=== PATIENT | female | born 1935 | race Caucasian/White ===

== ENCOUNTER 2020-04-07 19:46 | Inpatient (IN) | payer MEDICARE, BC ==
[~2020-04-07] VITALS: Ht 147.3 cm
--- NOTE | ~2020-04-07 | CON ---
[address] [address] CONSULTATION Name: STEPHANIE PAGE Room: [place] [address] ADM IN .R.#: [id number] Admission: 04/07/20 Attend Phys: Aviva Li MD Discharge: Date of : 33 Report #: [id number] THIS REPORT FOR: //name// cc: Prabhakar Gonzalez MD, Tuongvan T. MD ~ THIS REPORT FOR: //name// DATE OF SERVICE: 04/08/2020 REASON FOR CONSULT: Dysphagia and inability to swallow. HISTORY OF PRESENT ILLNESS: This is an 84-year-old female who presented to the Emergency Room with inability to swallow. The patient feels that there is a lump in her throat. She reports that she was not eating anything when she got the sensation. She denies any previous history of gastroesophageal reflux disease, dysphagia or odynophagia. The patient is diabetic and her blood sugar has been unstable, ranging from 40-300. PAST MEDICAL HISTORY: Significant for history of diabetes mellitus, constipation, hypothyroidism, dyslipidemia, hysterectomy, thrombocytopenia, hypertension, ROM to both arms. ALLERGIES: SIGNIFICANT TO PENICILLIN AND CODEINE. MEDICATIONS: Please refer to MAR. SOCIAL HISTORY: The patient lives at home, is and denies tobacco or alcohol use. FAMILY HISTORY: Noncontributory. PHYSICAL EXAMINATION: VITAL SIGNS: Reveals blood pressure of 155/60, respirations 16, pulse 87, temperature 98.8. LUNGS: Clear. CARDIOVASCULAR: Regular. ABDOMEN: Soft, nontender, nondistended. Bowel sounds are positive. NEUROLOGIC: The patient is alert and oriented x 3. LABORATORY DATA: Labs reveal sodium of 138, potassium 4.2, BUN is 22, creatinine 0.8, AST 16, lipase 78, alkaline phosphatase 64, ALT is 15. WBC is 14.8 with hemoglobin of 9.1 and platelets of 567. ASSESSMENT AND PLAN: The patient with possible food bolus as she is not able to swallow saliva or anything to drink or eat. [place] [address] CONSULTATION Name: STEPHANIE PAGE Room: [address] IN [facility]#: [id number] Admission: 04/07/20 Attend Phys: Aviva Li MD Discharge: Date of : 33 Report #: [id number] endoscopy and make further recommendation based on finding. The patient and are agreeable with plan. By: [id number] Desai MD /nt
[2020-04-07 19:50] VITALS: BP 174/79
[2020-04-07] MEDS ORDERED: AMITRIPTYLINE H50 M2 (20:15)
[2020-04-07] MEDS ORDERED: ADULT ASPIRIN R81 MG (20:16)
[2020-04-07] MEDS ORDERED: COLACE100 MG (20:16)
[2020-04-07] MEDS ORDERED: AZELASTINE205.5 MCG/ (20:16)
[2020-04-07] MEDS ORDERED: DULCOLAX10 MG (20:17)
[2020-04-07] MEDS ORDERED: FLEET ENEMA133 ML (20:17)
[2020-04-07] MEDS ORDERED: DULOXETINE HCL60 MG (20:18)
[2020-04-07] MEDS ORDERED: HUMALOG100 UNIT/1 (20:18)
[2020-04-07] MEDS ORDERED: LANTUS SUBQ (20:19)
[2020-04-07] MEDS ORDERED: LIDODERM1 EACH (20:20)
[2020-04-07] MEDS ORDERED: METFORMIN HCL500 M3 PO (20:20)
[2020-04-07] MEDS ORDERED: LEVO-T50 MCG (20:20)
[2020-04-07] MEDS ORDERED: ALOCRIL5 ML (20:21)
[2020-04-07] MEDS ORDERED: MIRALAX119 GM (20:21)
[2020-04-07] MEDS ORDERED: MILK OF MA400 MG/5 M (20:21)
[2020-04-07] MEDS ORDERED: HYDROCODON-ACE1 EAC7 (20:21)
[2020-04-07] MEDS ORDERED: OMEPRAZOLE 20 M20 M1 (20:22)
[2020-04-07] MEDS ORDERED: PLOGLITAZONE PO (20:23)
[2020-04-07] MEDS ORDERED: PRAVASTATIN SOD80 MG (20:24)
[2020-04-07] MEDS ORDERED: TIZANIDINE HCL4 M1 (20:24)
[2020-04-07] MEDS ORDERED: TYLENOL325 M1 (20:24)
[2020-04-07 20:36] LABS: HEMATOCRIT 29.2 % (37.0-47.0); HEMOGLOBIN 9.1 gm/dL (12.0-15.0); MCH 21.7 pg (26.0-34.0); MCHC 31.3 g/dL (28.0-37.0); MCV 69.4 fL (80.0-100.0); MPV 7.4 fl. (7.2-11.1); NUCLEATED RBCS 0 /100WBC; PLATELET COUNT* 567 thou/uL (150-400); RBC 4.21 mil/uL (4.20-5.00); RDW-CV 17.1 % (10.5-14.5); WBC 14.8 thou/uL (4.0-11.0)
[2020-04-07 20:42] LABS: ANION GAP 4 mmol/L (7-16); BUN 22 mg/dL (7-18); CALCIUM 8.5 mg/dL (8.5-10.1); CHLORIDE 102 mmol/L (98-107); CO2 32 mmol/L (21-32); CREATININE 0.8 mg/dL (0.6-1.3); GLUCOSE 68 mg/dL (70-99); POTASSIUM 4.2 mmol/L (3.5-5.1); SODIUM 138 mmol/L (136-145)
[2020-04-07 20:47] LABS: ALBUMIN 3.5 g/dL (3.4-5.0); ALKALINE PHOSPHATASE 64 U/L (46-116); CHOLESTEROL 155 mg/dL (<200); HDL CHOLESTEROL 50 mg/dL (>40); LDL CHOLESTEROL 82 mg/dL (<100); SERUM ASSESSMENT Clear; SGOT 16 U/L (15-37); SGPT 15 U/L (30-65); TC:HDL 3.1 Ratio (Not establshd); TOTAL BILIRUBIN 0.2 mg/dL (<0.1-1.0); TOTAL PROTEIN 7.5 g/dL (6.4-8.2); TRIGLYCERIDE 117 mg/dL (<150); VLDL 23 mg/dL (<40)
[2020-04-07 21:48] LABS: ABSOLUTE EOSINOPHILS 0.1 thou/uL (0.0-0.7); ABSOLUTE LYMPHOCYTES 0.6 thou/uL (0.8-5.3); ABSOLUTE MONOCYTES 0.3 thou/uL (0.0-1.2); ABSOLUTE NEUTROPHILS 13.8 thou/uL (1.6-8.1)
[2020-04-07 21:49] LABS: PLATELET ESTIMATE INCREASED
[2020-04-07 21:50] LABS: ANISOCYTOSIS 1+; HYPOCHROMASIA 2+; MICROCYTES 3+
[2020-04-07 22:12] LABS: URINE BILIRUBIN NEGATIVE (Negative); URINE BLOOD NEGATIVE (Negative); URINE CLARITY CLEAR; URINE COLOR YELLOW; URINE GLUCOSE-RANDOM 1+ (Negative); URINE KETONES NEGATIVE (Negative); URINE LEUKOCYTES-REFLEX NEGATIVE (Negative); URINE NITRITE-REFLEX NEGATIVE (Negative); URINE PROTEIN NEGATIVE (Negative); URINE SPECIFIC GRAVITY 1.015 (1.005-1.030); URINE UROBILINOGEN 0.2 E.U./dl (0.2-1.0)
[2020-04-08 06:00] VITALS: BP 155/60
[2020-04-08 18:00] VITALS: BP 153/67
[2020-04-08 20:00] VITALS: BP 131/50
[2020-04-09 07:58] VITALS: BP 138/46
[2020-04-09 09:08] LABS: HEMATOCRIT 22.4 % (37.0-47.0); MCH 21.9 pg (26.0-34.0); MCHC 31.5 g/dL (28.0-37.0); MCV 69.6 fL (80.0-100.0); MPV 7.8 fl. (7.2-11.1); RBC 3.21 mil/uL (4.20-5.00); RDW-CV 17.1 % (10.5-14.5); WBC 7.3 thou/uL (4.0-11.0)
[2020-04-09 09:19] LABS: ALBUMIN 2.7 g/dL (3.4-5.0); CALCIUM 7.9 mg/dL (8.5-10.1); CREATININE 0.8 mg/dL (0.6-1.3); MAGNESIUM 2.2 mg/dL (1.8-2.4); POTASSIUM 3.5 mmol/L (3.5-5.1); TOTAL BILIRUBIN 0.3 mg/dL (<0.1-1.0); TOTAL PROTEIN 6.2 g/dL (6.4-8.2)
[2020-04-09 12:00] VITALS: BP 123/49
[2020-04-09 13:05] LABS: HEMATOCRIT 23.3 % (37.0-47.0); HEMOGLOBIN 7.2 gm/dL (12.0-15.0); MCH 21.9 pg (26.0-34.0); MCHC 30.9 g/dL (28.0-37.0); MCV 70.9 fL (80.0-100.0); MPV 7.5 fl. (7.2-11.1); RBC 3.29 mil/uL (4.20-5.00); RDW-CV 16.8 % (10.5-14.5); WBC 9.8 thou/uL (4.0-11.0)
[2020-04-09 14:22] LABS: % SATURATION 5 % (20-39); IRON 19 ug/dL (50-175)
[2020-04-09 17:00] VITALS: BP 137/51
[2020-04-09 19:30] VITALS: BP 150/53
[2020-04-10] VITALS: BP 158/53
[2020-04-10 04:00] VITALS: BP 158/60
[2020-04-10 04:11] LABS: HEMATOCRIT 26.8 % (37.0-47.0); HEMOGLOBIN 8.3 gm/dL (12.0-15.0); MCH 21.7 pg (26.0-34.0); MCHC 30.9 g/dL (28.0-37.0); MCV 70.1 fL (80.0-100.0); MPV 7.7 fl. (7.2-11.1); RBC 3.82 mil/uL (4.20-5.00); RDW-CV 17.1 % (10.5-14.5); WBC 9.1 thou/uL (4.0-11.0)
[2020-04-10 04:50] LABS: ALBUMIN 2.8 g/dL (3.4-5.0); CALCIUM 8.4 mg/dL (8.5-10.1); CREATININE 0.8 mg/dL (0.6-1.3); POTASSIUM 3.8 mmol/L (3.5-5.1); TOTAL BILIRUBIN 0.3 mg/dL (<0.1-1.0); TOTAL PROTEIN 6.7 g/dL (6.4-8.2)
[2020-04-10 08:00] VITALS: BP 138/97
[2020-04-10] MEDS ORDERED: IPRAT-ALBUT 0.5-3 ML INH (12:11)
[2020-04-10] MEDS ORDERED: FERREX 150 PLU1 EAC1 PO (12:12)
[2020-04-10] MEDS ORDERED: CARAFATE 11 GM/10 M1 PO (12:14)
[2020-04-10 13:20] VITALS: BP 138/97
== END 2020-04-10 16:00 | disposition home health service (06) | DRG 393 ==
LOC: M.ERS 19:46 → M.TBA-ER 21:57 → M.3W 04-08 17:18
PROVIDERS: Emergency Medicine Emergency Medical Services; Family Medicine; ADMIT Internal Medicine; ATTEND Internal Medicine
PROC: 0DC58ZZ Extirpation of Matter from Esophagus, Via Natural or Artificial Opening Endoscopic (ICD-10-PCS; principal; 2020-04-09)
PROC: 3E0G8GC Introduction of Other Therapeutic Substance into Upper GI, Via Natural or Artificial Opening Endoscopic (ICD-10-PCS; principal; 2020-04-09)
PROC: 0D758ZZ Dilation of Esophagus, Via Natural or Artificial Opening Endoscopic (ICD-10-PCS; principal; 2020-04-09)
DX: T18.128A Food in esophagus causing other injury, initial encounter (principal); J69.0 Pneumonitis due to inhalation of food and vomit; R65.10 Systemic inflammatory response syndrome (SIRS) of non-infectious origin without acute organ dysfunction; E44.0 Moderate protein-calorie malnutrition; E11.649 Type 2 diabetes mellitus with hypoglycemia without coma; K22.0 Achalasia of cardia; K21.9 Gastro-esophageal reflux disease without esophagitis; I11.0 Hypertensive heart disease with heart failure; I50.9 Heart failure, unspecified; D50.9 Iron deficiency anemia, unspecified; E03.9 Hypothyroidism, unspecified; E78.5 Hyperlipidemia, unspecified; D69.6 Thrombocytopenia, unspecified; K31.9 Disease of stomach and duodenum, unspecified; X58.XXXA Exposure to other specified factors, initial encounter; Y93.89 Activity, other specified; Y92.89 Other specified places as the place of occurrence of the external cause; Y99.8 Other external cause status; Z90.710 Acquired absence of both cervix and uterus; Z79.899 Other long term (current) drug therapy; Z79.82 Long term (current) use of aspirin; Z79.4 Long term (current) use of insulin; Z88.5 Allergy status to narcotic agent; Z88.0 Allergy status to penicillin

== ENCOUNTER 2020-07-11 01:06 | Inpatient (IN) | payer MEDICARE, BC ==
[2020-07-11] VITALS (20 sets, daily range): BP systolic 99–157; BP diastolic 34–67
[~2020-07-11] VITALS: Ht 149.9 cm; Wt 71.7 kg
[~2020-07-11 01:06] MED LIST: ADULT ASPIRIN R81 MG; ALOCRIL5 ML; AMITRIPTYLINE H50 M2; AZELASTINE205.5 MCG/; CARAFATE 11 GM/10 M1 PO; COLACE100 MG; DULCOLAX10 MG; DULOXETINE HCL60 MG; FERREX 150 PLU1 EAC1 PO; FLEET ENEMA133 ML; HUMALOG100 UNIT/1; HYDROCODON-ACE1 EAC7; IPRAT-ALBUT 0.5-3 ML INH; LANTUS SUBQ; LEVO-T50 MCG; LIDODERM1 EACH; METFORMIN HCL500 M3 PO; MILK OF MA400 MG/5 M; MIRALAX119 GM; OMEPRAZOLE 20 M20 M1; PLOGLITAZONE PO; PRAVASTATIN SOD80 MG; TIZANIDINE HCL4 M1; TYLENOL325 M1
[2020-07-11 01:53] LABS: HEMATOCRIT 34.4 % (37.0-47.0); HEMOGLOBIN 9.3 gm/dL (12.0-15.0); MCH 20.6 pg (26.0-34.0); MCV 76.4 fL (80.0-100.0); MPV 8.3 fl. (7.2-11.1); NUCLEATED RBCS 0 /100WBC; PLATELET COUNT* 596 thou/uL (150-400); RDW-CV 20.2 % (10.5-14.5); WBC 11.1 thou/uL (4.0-11.0)
[2020-07-11 01:58] LABS: PROTIME 10.9 Seconds (9.20-11.50)
[2020-07-11] MEDS ORDERED: ACTOS 30 MG TAB30 M1 PO (02:02)
[2020-07-11 02:06] LABS: ALBUMIN 2.9 g/dL (3.4-5.0); CALCIUM 9.2 mg/dL (8.5-10.1); CREATININE 1.7 mg/dL (0.6-1.3); MAGNESIUM 3.6 mg/dL (1.8-2.4); TOTAL BILIRUBIN 0.3 mg/dL (<0.1-1.0); TOTAL PROTEIN 7.7 g/dL (6.4-8.2)
[2020-07-11 02:07] LABS: POTASSIUM 6.4 mmol/L (3.5-5.1)
[2020-07-11 02:11] LABS: URINE BILIRUBIN NEGATIVE (Negative); URINE BLOOD NEGATIVE (Negative); URINE CLARITY CLEAR; URINE COLOR YELLOW; URINE GLUCOSE-RANDOM 3+ (Negative); URINE KETONES TRACE (Negative); URINE LEUKOCYTES-REFLEX NEGATIVE (Negative); URINE NITRITE-REFLEX NEGATIVE (Negative); URINE PROTEIN NEGATIVE (Negative); URINE SPECIFIC GRAVITY <= 1.005 (1.005-1.030); URINE UROBILINOGEN 0.2 E.U./dl (0.2-1.0)
[2020-07-11 03:13] LABS: BE -3.6 mmol/L (-2 to +3); PCO2 37.2 mmHg (35.0-45.0); PO2 82.8 mmHg (75.0-100.0); pH 7.374 (7.340-7.450)
[2020-07-11 03:16] LABS: ABSOLUTE LYMPHOCYTES 0.4 thou/uL (0.8-5.3); ABSOLUTE MONOCYTES 0.3 thou/uL (0.0-1.2); ABSOLUTE NEUTROPHILS 10.3 thou/uL (1.6-8.1); METAMYELOCYTES 1 %
[2020-07-11 03:17] LABS: ANISOCYTOSIS 2+; LARGE PLATELETS OCCASIONAL; PLATELET ESTIMATE INCREASED
[2020-07-11 03:18] LABS: HYPOCHROMASIA 3+; POLYCHROMASIA 1+
[2020-07-11 07:51] LABS: CALCIUM 8.7 mg/dL (8.5-10.1); CREATININE 1.2 mg/dL (0.6-1.3)
[2020-07-11 07:52] LABS: POTASSIUM 4.1 mmol/L (3.5-5.1)
[2020-07-11 07:54] LABS: ALBUMIN 2.6 g/dL (3.4-5.0); MAGNESIUM 2.9 mg/dL (1.8-2.4); PHOSPHORUS* 3.4 mg/dL (2.5-4.9)
--- NOTE | 2020-07-11 13:13 | EKG ---
[place] [address] ELECTROCARDIOGRAM REPORT Name: STEPHANIE PAGE Room: [address] IN .R.#: [id number] Admission: 07/11/20 Attend Phys: Sammie Gonzalez MD Discharge: Date of : 33 Date of Service: 07/11/20 0115 Report #: [id number] THIS REPORT FOR: //name// [facility] ED Test Date: 2020-07-11 Test Time: 01:15:08 Pat Name: STEPHANIE PAGE Department: Room: [facility] Gender: F Digital Field Service Technician: [facility] : 1935 Requested By: Latoya Patterson Order Number: [id number] MD: Rodriguez Covington Measurements Intervals [place] Rate: 73 P: 60 ME: 173 QRS: 5 QRSD: 85 T: 60 QT: 390 QTc: 430 Interpretive Statements Sinus rhythm Atrial premature complexes No previous ECG available for comparison Electronically Signed On 07-11-2020 13:13:17 TECHNICIAN ASSISTANT by Rodriguez Covington [email or web address] <ELECTRONICALLY SIGNED> By: Rodriguez Covington MD, [facility] 07/11/20 1313 0115 0115 Rodriguez Covington MD, [facility] /EPI
[2020-07-12] VITALS (13 sets, daily range): BP systolic 137–176; BP diastolic 34–104
[2020-07-12 03:26] LABS: HEMATOCRIT 27.2 % (37.0-47.0); HEMOGLOBIN 8.3 gm/dL (12.0-15.0); MCH 21.1 pg (26.0-34.0); MCHC 30.4 g/dL (28.0-37.0); MPV 6.9 fl. (7.2-11.1); RBC 3.92 mil/uL (4.20-5.00); RDW-CV 19.4 % (10.5-14.5); WBC 14.2 thou/uL (4.0-11.0)
[2020-07-12 03:29] LABS: MCV 69.5 fL (80.0-100.0)
[2020-07-12 03:58] LABS: CALCIUM 8.3 mg/dL (8.5-10.1); CREATININE 0.8 mg/dL (0.6-1.3); POTASSIUM 3.8 mmol/L (3.5-5.1)
[2020-07-13 04:18] LABS: HEMATOCRIT 25.9 % (37.0-47.0); MCH 21.2 pg (26.0-34.0); MCHC 30.7 g/dL (28.0-37.0); MCV 68.9 fL (80.0-100.0); MPV 7.3 fl. (7.2-11.1); RBC 3.76 mil/uL (4.20-5.00); RDW-CV 18.6 % (10.5-14.5); WBC 9.9 thou/uL (4.0-11.0)
[2020-07-13 04:42] LABS: CREATININE 0.8 mg/dL (0.6-1.3); POTASSIUM 4.2 mmol/L (3.5-5.1)
[2020-07-13 08:00] VITALS: BP 166/68
[2020-07-13 10:39] VITALS: BP 166/68
[2020-07-13 14:11] VITALS: BP 166/68
== END 2020-07-13 13:55 | disposition home or self-care (01) | DRG 637 ==
LOC: M.ERS 01:06 → M.ICU 02:49 → M.3W 02:49 → M.TBA-ER 02:49 → M.ICU 07:57 → M.3W 07-12 09:51
PROVIDERS: Emergency Medicine; ADMIT Family Medicine; ATTEND Family Medicine
DX: E11.10 Type 2 diabetes mellitus with ketoacidosis without coma (principal); G93.41 Metabolic encephalopathy; N17.9 Acute kidney failure, unspecified; E78.5 Hyperlipidemia, unspecified; E03.9 Hypothyroidism, unspecified; D64.9 Anemia, unspecified; E83.41 Hypermagnesemia; R63.0 Anorexia; I10 Essential (primary) hypertension; E78.1 Pure hyperglyceridemia; Z20.822 Contact with and (suspected) exposure to COVID-19; Z79.4 Long term (current) use of insulin; Z90.710 Acquired absence of both cervix and uterus; Z98.42 Cataract extraction status, left eye; Z98.41 Cataract extraction status, right eye; Z79.82 Long term (current) use of aspirin; Z79.899 Other long term (current) drug therapy; Z88.5 Allergy status to narcotic agent; Z88.0 Allergy status to penicillin; Z68.31 Body mass index [BMI] 31.0-31.9, adult